=== PATIENT | male | born 1950 | race Caucasian/White ===

== ENCOUNTER 2016-09-02 13:44 | Observation (INO) | payer BC ==
[~2016-09-02] VITALS: Ht 190.5 cm; Wt 92.1 kg
[2016-09-02 14:27] LABS: HEMOGLOBIN 14.5 gm/dl (14.0-17.5); RED BLOOD COUNT 4.52 M/UL (4.20-5.50); WHITE BLOOD COUNT 8.4 K/UL (4.5-11.0)
[2016-09-02] MEDS ORDERED: CRESTOR20 MG PO (14:27)
[2016-09-02] MEDS ORDERED: FLOMAX0.4 MG PO (14:27)
[2016-09-02] MEDS ORDERED: ZOFRAN4 MG PO (14:28)
[2016-09-02] MEDS ORDERED: ENDOCET 5-3251 EACH PO (14:29)
[2016-09-02 14:50] LABS: BUN/CREATININE RATIO 17 (0-10)
[2016-09-02] MEDS ORDERED: CEPHALEXIN500 M1 PO (16:20)
--- NOTE | 2016-09-03 17:57 | NUR ---
CURRENTLY THE PATIENT IS DOWN STAIRS IN SURGERY.
[2016-09-04] MEDS ORDERED: PERCOCET 10-321 EACH PO (16:25)
== END 2016-09-04 18:34 | disposition home or self-care (01) ==
LOC: M/S 13:44 → OR 13:44 → M/S 13:50 → OR 16:39 → M/S 16:39 → OR 09-03 11:24 → M/S 09-04 18:34
PROVIDERS: ADMIT Orthopaedic Surgery
PROC: 0PSDXZZ Reposition Left Humeral Head, External Approach (ICD-10-PCS; principal; 2016-09-02 13:00)
DX: S42.432A Displaced fracture (avulsion) of lateral epicondyle of left humerus, initial encounter for closed fracture (principal); N40.0 Benign prostatic hyperplasia without lower urinary tract symptoms; Z79.899 Other long term (current) drug therapy; Z98.890 Other specified postprocedural states
CPT/HCPCS: 36415; 73080; 73130; 73200; 76000; 80048; 85025; 93005; 96374; 96375; 96376; C1713; G0378; J0690; J1885; J2250; J2270; J2370; J2405; J2550; J2795; J3010; J7030; J7050; J7120